=== PATIENT | female | born 1960 | race Caucasian/White ===

== ENCOUNTER 2024-10-03 08:40 | Day surgery (SDC) | payer MEDICARE, MEDICAID ==
[~2024-10-03] VITALS: Ht 162.6 cm; Wt 81.8 kg
[~2024-10-03 08:40] MED LIST: GABA-530 PO; PER5325T PO; SEMA0.258
[2024-10-03 09:30] VITALS: BP 114/74; PULSE 68; RESP 18
[2024-10-03] MEDS ORDERED: fentaNYL/PF 50MCG/1 ML 2ML syringe ONE (11:15)
[2024-10-03] MEDS ORDERED: propofol inj 20 ML IV ONE ×2 (11:16)
[2024-10-03 12:02] VITALS: BP 117/73; PULSE 70; RESP 16; O2SAT 100
[2024-10-03 12:12] VITALS: BP 115/69; PULSE 68; RESP 13; O2SAT 96
[2024-10-03 12:22] VITALS: BP 131/75; PULSE 63; RESP 14; O2SAT 97
[2024-10-03 12:32] VITALS: BP 135/86; PULSE 65; RESP 16; O2SAT 97
[2024-10-03 12:40] VITALS: BP 128/81; PULSE 65; RESP 16; O2SAT 98
--- NOTE | 2024-10-04 15:52 | PATHOLOGY REPORT ---
[facility] [address] [place] [address] SURGICAL PATHOLOGY REPORT CaseNumber: [id number] Surgeon:Ann Yancey MD CLINICAL INFORMATION CLINICAL INFORMATION: High risk colon cancer surveillance: Personal history of colonic polyps. DIAGNOSIS DIAGNOSIS: A.ULCER, ILEOCECAL VALVE, BIOPSIES X 3 - SUPERFICIAL MUCOSAL EROSION/ULCERATION - MILDLY INCREASED NUMBERS OF EMBEDDED LYMPHOCYTES AND NEUTROPHILS - ASSOCIATED REACTIVE AND SOME DEGENERATIVE CHANGES - NO INFECTIOUS ELEMENTS ARE IDENTIFIED - NO DYSPLASTIC OR NEOPLASTIC FEATURES DIAGNOSIS: B.POLYP, SIGMOID COLON, BIOPSIES X 2 - BENIGN HYPERPLASTIC POLYP MICROSCOPIC DESCRIPTION A. ULCER, ILEOCECAL VALVE, BIOPSIES X 3 MICROSCOPIC DESCRIPTION: Reviewed is a single H&E-stained slide showing sections of the levels of thr ee fragments of colonic mucosa. There are areas of superficial mucosal erosion/ulceration associated with granulation-type tissue formation and embedded with mildly increased numbers of lymphocytes and occasional neutrophils, along with fairly numerous eosinophils. There are reactive as well as some degenerative changes. However, there are no dysplastic or neoplastic features. Also, no infectious elements are identified. B. POLYP, SIGMOID COLON, BIOPSIES X 2 MICROSCOPIC DESCRIPTION: Reviewed is a single H&E-stained slide showing serial sections and levels of two polypoid fragments of colonic mucosa. There are areas involved by hyperplastic changes. There ar e no dysplastic or neoplastic features. GROSS DESCRIPTION A. ULCER, ILEOCECAL VALVE, BIOPSIES X 3 GROSS DESCRIPTION: Received in a container of formalin labeled with the patient's name, number, and " IC valve ulcer BX" are 3 pieces of ann tissue 0.2-0.3 cm. The specimen is entirely submitted as A1. T he time at which the specimen was removed was 1138. The time at which the specimen was placed in form amado was 1140. B. POLYP, SIGMOID COLON, BIOPSIES X 2 GROSS DESCRIPTION: Received in a container of formalin labeled with the patient's name, number, and " sigmoid biopsy" are 2 pieces of pink-ann tissue 0.4 x 0.2 x 0.2 and 0.7 x 0.3 x 0.2 cm. The specimen is entirely submitted as B1. The time at which the specimen was removed was 1153. The time at which t he specimen was placed in formalin was 1155. Electronically signed by: Aniceto Malik M.D. 10/04/2024 3:12:00 PM
== END 2024-10-03 12:50 | disposition home or self-care (01) ==
LOC: GI LAB 08:40
PROVIDERS: ATTEND Internal Medicine Gastroenterology
DX: Z09 Encounter for follow-up examination after completed treatment for conditions other than malignant neoplasm (principal); K57.30 Diverticulosis of large intestine without perforation or abscess without bleeding; K63.3 Ulcer of intestine; K63.5 Polyp of colon; Z79.899 Other long term (current) drug therapy
CPT/HCPCS: 45380; 45385; C1889; J2704; J3010; J7030; Z7512